=== PATIENT | female | born 1940 | race Two or more races ===

== ENCOUNTER 2021-05-27 10:30 | Emergency (ER) | payer OTHER ==
[~2021-05-27] VITALS: Ht 154.9 cm; Wt 71.7 kg
[2021-05-27] MEDS ORDERED: cloNIDine HCL 0.1 MG TAB PO ONE (11:00)
[2021-05-27] MEDS ORDERED: traMADol HCL 50 MG TAB ONE (11:22)
[2021-05-27] MEDS ORDERED: traMADol HCL 50 MG TAB PO ONE (11:30)
[2021-05-27] MEDS ORDERED: TRAM-297 PO (12:40)
[2021-05-27 13:21] VITALS: BP 183/76
== END 2021-05-27 13:23 | disposition home or self-care (01) ==
LOC: ER 10:30
DX: I16.0 Hypertensive urgency (principal); M17.11 Unilateral primary osteoarthritis, right knee; Z90.710 Acquired absence of both cervix and uterus
CPT/HCPCS: 73700; 93005